=== PATIENT | female | born 1990 | race Caucasian/White ===

== ENCOUNTER 2021-06-28 21:48 | Inpatient (IN) | payer OTHER ==
[2021-06-28 22:36] LABS: BASOPHILS ABSOLUTE AUTO 0.08 K/mm3 (0.00-0.23); BASOPHILS PERCENT AUTO 1 % (0-2); EOSINOPHILS ABSOLUTE AUTO 0.06 K/mm3 (0.00-0.68); EOSINOPHILS PERCENT AUTO 0 % (0-6); Hematocrit 36.4 % (33.0-51.0); Hemoglobin 11.9 g/dL (11.5-16.0); IMMATURE GRAN ABSOLUTE AUTO 0.22 K/mm3 (0.00-0.10); IMMATURE GRAN PERCENT AUTO 1 % (0-1); LYMPHOCYTES ABSOLUTE AUTO 1.49 K/mm3 (0.84-5.20); LYMPHOCYTES PERCENT AUTO 9 % (21-46); MONOCYTES ABSOLUTE AUTO 1.33 K/mm3 (0.16-1.47); MONOCYTES PERCENT AUTO 8 % (4-13); Mean Corpuscular HGB 25.5 pg (26.0-34.0); Mean Corpuscular HGB Conc 32.7 g/dL (31.5-36.5); Mean Corpuscular Volume 78 fL (80-100); Mean Platelet Volume 10.3 fL (9.1-12.4); NEUTROPHILS ABSOLUTE AUTO 12.63 K/mm3 (1.96-9.15); NEUTROPHILS PERCENT AUTO 80 % (41-73); Platelet Count 329 K/mm3 (150-400); RDW Coefficient Variation 14.7 % (11.7-14.2); RDW Standard Deviation 41.1 fL (35.1-46.3); Red Blood Cell Count 4.66 M/mm3 (3.80-5.20); White Blood Cell Count 15.81 K/mm3 (4.00-11.30)
[2021-06-28 23:46] LABS: SARS-Cov-2 (COVID-19) PCR, MMC POSITIVE (NEGATIVE)
[2021-06-30 06:33] LABS: Hematocrit 29.6 % (33.0-51.0); Hemoglobin 9.4 g/dL (11.5-16.0); Mean Corpuscular HGB 25.5 pg (26.0-34.0); Mean Corpuscular HGB Conc 31.8 g/dL (31.5-36.5); Mean Corpuscular Volume 80 fL (80-100); Platelet Count 235 K/mm3 (150-400); RDW Coefficient Variation 15.3 % (11.7-14.2); RDW Standard Deviation 44.3 fL (35.1-46.3); Red Blood Cell Count 3.68 M/mm3 (3.80-5.20); White Blood Cell Count 13.03 K/mm3 (4.00-11.30)
[2021-06-30] MEDS ORDERED: IBUP800 (09:08)
--- NOTE | 2021-06-30 09:10 | NUR ---
Late Entry form 06/29/21. After being contacted by MITCHELL Merrill Wonderly with a request that Father Vikash visit patient, I call Father Vikash. Father Vikash states that he will visit patient 06/30/21 (no time given).
== END 2021-06-30 15:30 | disposition home or self-care (01) | DRG 805 ==
LOC: OBS 21:48 → BC 21:59 → OBS 22:05 → BC 22:23
PROVIDERS: ADMIT Nurse Practitioner Obstetrics & Gynecology
PROC: 10E0XZZ Delivery of Products of Conception, External Approach (ICD-10-PCS; principal; 2021-06-29)
PROC: 10H07YZ Insertion of Other Device into Products of Conception, Via Natural or Artificial Opening (ICD-10-PCS; 2021-06-29)
PROC: 00HU33Z Insertion of Infusion Device into Spinal Canal, Percutaneous Approach (ICD-10-PCS; 2021-06-29)
PROC: 3E0R3BZ Introduction of Anesthetic Agent into Spinal Canal, Percutaneous Approach (ICD-10-PCS; 2021-06-29)
PROC: 0HQ9XZZ Repair Perineum Skin, External Approach (ICD-10-PCS; 2021-06-29)
DX: O77.0 Labor and delivery complicated by meconium in amniotic fluid (principal); U07.1 COVID-19; Z37.0 Single live birth; O98.52 Other viral diseases complicating childbirth; Z3A.41 41 weeks gestation of pregnancy; Z79.899 Other long term (current) drug therapy; O70.0 First degree perineal laceration during delivery
CPT/HCPCS: 36415; 51702; 59070; 85025; 85027; 86850; 86900; 86901; A9270; J0290; J0690; J1885; J2210; J2590; J3010; J7030; J7120; U0004

== ENCOUNTER → 2024-03-06 | Outpatient (CLI) | payer OTHER ==
[~2024-03-06] MED LIST: IBUP800
[2024-03-12 11:14] LABS: HPV HIGH RISK BY TMA Detected; HPV SOURCE Cervical
[2024-03-13 12:14] LABS: HPV GENOTYPE 16 BY TMA Not Detected; HPV GENOTYPE 18/45 BY TMA Not Detected; HPVG SOURCE Cervical
== END | disposition home or self-care (01) ==
LOC: LAB 13:35 → LAB SHORT 13:35
PROVIDERS: Advanced Practice Midwife
DX: Z01.419 Encounter for gynecological examination (general) (routine) without abnormal findings (principal)
CPT/HCPCS: 87624; 87625; G0123

== ENCOUNTER → 2024-12-02 | Outpatient (CLI) | payer OTHER ==
[2024-12-02 14:34] LABS: BASOPHILS ABSOLUTE AUTO 0.06 K/mm3 (0.00-0.23); BASOPHILS PERCENT AUTO 1 % (0-2); EOSINOPHILS ABSOLUTE AUTO 0.04 K/mm3 (0.00-0.68); EOSINOPHILS PERCENT AUTO 0 % (0-6); Hematocrit 33.5 % (33.0-51.0); Hemoglobin 11.6 g/dL (11.5-16.0); IMMATURE GRAN ABSOLUTE AUTO 0.18 K/mm3 (0.00-0.10); IMMATURE GRAN PERCENT AUTO 2 % (0-1); LYMPHOCYTES ABSOLUTE AUTO 1.13 K/mm3 (0.84-5.20); LYMPHOCYTES PERCENT AUTO 11 % (21-46); MONOCYTES ABSOLUTE AUTO 0.63 K/mm3 (0.16-1.47); MONOCYTES PERCENT AUTO 6 % (4-13); Mean Corpuscular HGB 30.2 pg (26.0-34.0); Mean Corpuscular HGB Conc 34.6 g/dL (31.5-36.5); Mean Corpuscular Volume 87 fL (80-100); Mean Platelet Volume 10.1 fL (9.1-12.4); NEUTROPHILS ABSOLUTE AUTO 8.13 K/mm3 (1.96-9.15); NEUTROPHILS PERCENT AUTO 80 % (41-73); Platelet Count 270 K/mm3 (150-400); RDW Coefficient Variation 12.1 % (11.7-14.2); RDW Standard Deviation 38.5 fL (35.1-46.3); Red Blood Cell Count 3.84 M/mm3 (3.80-5.20); White Blood Cell Count 10.17 K/mm3 (4.00-11.30)
== END ==
LOC: LAB 13:15 → LAB SHORT 13:15
PROVIDERS: Advanced Practice Midwife
DX: Z34.93 Encounter for supervision of normal pregnancy, unspecified, third trimester (principal)
CPT/HCPCS: 82950; 85025

== ENCOUNTER → 2024-12-18 | Outpatient (CLI) | payer OTHER | END | disposition home or self-care (01) | LOC: LAB SHORT 13:12 → LAB 13:12 | DX: Z34.93 Encounter for supervision of normal pregnancy, unspecified, third trimester (principal) | CPT/HCPCS: 82951; 82952 ==

== ENCOUNTER → 2025-02-05 | Outpatient (CLI) | payer OTHER ==
[2025-02-05 18:02] LABS: Bacterial Vaginosis PCR Negative (NEGATIVE); Candida glabrata-krusei, PCR NOT DETECTED (NOT DETECT)
[2025-02-05 19:31] LABS: Candida Group, PCR DETECTED (NOT DETECT)
== END ==
LOC: LAB 14:12 → LAB SHORT 14:12
PROVIDERS: Advanced Practice Midwife
DX: N89.8 Other specified noninflammatory disorders of vagina (principal)
CPT/HCPCS: 81515

== ENCOUNTER 2025-02-18 10:05 | Inpatient (IN) | payer OTHER ==
[2025-02-18] VITALS (8 sets, daily range): BP systolic 111–128; BP diastolic 57–84
[2025-02-18] MEDS ORDERED: OXYTOCIN/RINGER'S LACTATE 500 ML IV PRN (10:30)
[2025-02-18] MEDS ORDERED: Misoprostol 200 MCG Tab BC PRN (10:30)
[2025-02-18] MEDS ORDERED: Lactated Ringer's 1,000 ML IV PRN (10:30)
[2025-02-18] MEDS ORDERED: Acetaminophen 500 MG Tab PO PRN (10:30)
[2025-02-18] MEDS ORDERED: Oxytocin 10 Unit / ML Vial IM PRN (10:30)
[2025-02-18] MEDS ORDERED: Misoprostol 200 MCG Tab PR PRN (10:30)
[2025-02-18] MEDS ORDERED: Methylergonovine Maleate 0.2MG / ML 1ML Amp IM PRN ×2 (10:30→14:00)
[2025-02-18] MEDS ORDERED: Carboprost Tromethamine 250 MCG/ML 1ML Amp IM PRN (10:30)
[2025-02-18] MEDS ORDERED: Ondansetron HCl 2 MG / ML 2ML Vial IV PRN (10:30)
[2025-02-18] MEDS ORDERED: Calcium Carbonate 500 MG Tab Chew PO SCH (10:30)
[2025-02-18] MEDS ORDERED: FentaNYL 2mcg/ml-Bup 0.1% Epd 250 ML EPI PRN (10:35)
[2025-02-18] MEDS ORDERED: ePHEDrine Sulfate 50 MG/ML 1ML Injection XX PRN (10:35)
[2025-02-18] MEDS ORDERED: Lactated Ringer's 1,000 ML IV SCH ×3 (10:35→14:00)
[2025-02-18] MEDS ORDERED: Tranexamic Acid 100 ML IV SCH (10:40)
[2025-02-18] MEDS ORDERED: FentaNYL Citrate 50 MCG/ML 2 ML Injection ONE (11:03)
[2025-02-18] MEDS ORDERED: FentaNYL Citrate 50 MCG/ML 2 ML Injection IV PRN (11:05)
[2025-02-18 11:10] LABS: BASOPHILS ABSOLUTE AUTO 0.09 K/mm3 (0.00-0.23); BASOPHILS PERCENT AUTO 1 % (0-2); EOSINOPHILS ABSOLUTE AUTO 0.04 K/mm3 (0.00-0.68); EOSINOPHILS PERCENT AUTO 0 % (0-6); Hematocrit 36.7 % (33.0-51.0); Hemoglobin 12.3 g/dL (11.5-16.0); IMMATURE GRAN ABSOLUTE AUTO 0.25 K/mm3 (0.00-0.10); IMMATURE GRAN PERCENT AUTO 2 % (0-1); LYMPHOCYTES ABSOLUTE AUTO 1.43 K/mm3 (0.84-5.20); LYMPHOCYTES PERCENT AUTO 9 % (21-46); MONOCYTES ABSOLUTE AUTO 0.96 K/mm3 (0.16-1.47); MONOCYTES PERCENT AUTO 6 % (4-13); Mean Corpuscular HGB 26.6 pg (26.0-34.0); Mean Corpuscular HGB Conc 33.5 g/dL (31.5-36.5); Mean Corpuscular Volume 79 fL (80-100); NEUTROPHILS ABSOLUTE AUTO 13.04 K/mm3 (1.96-9.15); NEUTROPHILS PERCENT AUTO 82 % (41-73); Platelet Count 293 K/mm3 (150-400); RDW Coefficient Variation 14.3 % (11.7-14.2); RDW Standard Deviation 40.8 fL (35.1-46.3); Red Blood Cell Count 4.63 M/mm3 (3.80-5.20); White Blood Cell Count 15.81 K/mm3 (4.00-11.30)
[2025-02-18] MEDS ORDERED: OxyCODONE 5 mg/Acetamin 325 mg TABLET PO PRN (14:00)
[2025-02-18] MEDS ORDERED: Lanolin Cream TOP PRN (14:00)
[2025-02-18] MEDS ORDERED: Misoprostol 100 MCG Tab PO PRN (14:00)
[2025-02-18] MEDS ORDERED: Ibuprofen 400 MG Tab PO PRN (14:00)
[2025-02-18] MEDS ORDERED: Ketorolac Tromethamine 30mg Vial IV PRN (14:00)
[2025-02-18] MEDS ORDERED: Acetaminophen 325 MG TABLET PO PRN (14:05)
[2025-02-18] MEDS ORDERED: OXYTOCIN/RINGER'S LACTATE 500 ML IV SCH (14:05)
[2025-02-18] MEDS ORDERED: Benzocaine Topical Anesthetic Spray 60GM TOP PRN (14:05)
[2025-02-18] MEDS ORDERED: Diphth,Pertuss(Acell),Tet Vac 0.5 ML VIAL IM SCH (14:05)
[2025-02-18] MEDS ORDERED: Docusate Sodium 100 MG Cap PO PRN (14:05)
[2025-02-18] MEDS ORDERED: Witch Hazel/Glycerin PADS TOP PRN (14:05)
[2025-02-18] MEDS ORDERED: Methylergonovine Maleate 0.2MG / ML 1ML Amp IV ONE (16:26)
[2025-02-19 03:14] VITALS: BP 126/72
[2025-02-19 06:01] LABS: Hematocrit 31.2 % (33.0-51.0); Hemoglobin 10.2 g/dL (11.5-16.0); Mean Corpuscular HGB 26.1 pg (26.0-34.0); Mean Corpuscular HGB Conc 32.7 g/dL (31.5-36.5); Mean Corpuscular Volume 80 fL (80-100); Mean Platelet Volume 9.7 fL (9.1-12.4); Platelet Count 245 K/mm3 (150-400); RDW Coefficient Variation 14.4 % (11.7-14.2); RDW Standard Deviation 40.8 fL (35.1-46.3); Red Blood Cell Count 3.91 M/mm3 (3.80-5.20); White Blood Cell Count 14.78 K/mm3 (4.00-11.30)
[2025-02-19 08:52] VITALS: BP 100/56
[2025-02-19] MEDS ORDERED: Prenatal Vit/FE Fumarate/FA 1 Tab PO SCH (09:00)
[2025-02-19 11:43] LABS: Influenza A, PCR NEGATIVE (NEGATIVE); Influenza B, PCR NEGATIVE (NEGATIVE); Resp Syncytial Virus, PCR NEGATIVE (NEGATIVE)
[2025-02-19 11:59] LABS: SARS-Cov-2 (COVID-19) PCR, MMC POSITIVE (NEGATIVE)
[2025-02-19 13:02] VITALS: BP 112/65
[2025-02-22 17:22] LABS: HEPATITIS C AB CIA INTERP Negative (Negative); HEPATITIS C ANTIBODY CIA INDEX 0.06 IV
== END 2025-02-19 15:15 | disposition home or self-care (01) | DRG 806 ==
LOC: OBS 10:05 → BC 10:09 → OBS 10:22 → BC 10:22
PROVIDERS: ADMIT Advanced Practice Midwife
PROC: 10E0XZZ Delivery of Products of Conception, External Approach (ICD-10-PCS; principal; 2025-02-18)
PROC: 10907ZC Drainage of Amniotic Fluid, Therapeutic from Products of Conception, Via Natural or Artificial Opening (ICD-10-PCS; 2025-02-18)
PROC: 0HQ9XZZ Repair Perineum Skin, External Approach (ICD-10-PCS; 2025-02-18)
DX: O48.0 Post-term pregnancy (principal); O98.32 Other infections with a predominantly sexual mode of transmission complicating childbirth; Z37.0 Single live birth; Z3A.40 40 weeks gestation of pregnancy; A60.09 Herpesviral infection of other urogenital tract; O70.0 First degree perineal laceration during delivery; O77.0 Labor and delivery complicated by meconium in amniotic fluid
CPT/HCPCS: 0241U; 36415; 59025; 85025; 85027; 86803; 86850; 86900; 86901; 99214; A9270; J1885; J2210; J2590; J3010

== ENCOUNTER 2025-04-18 17:20 | Inpatient (IN) | payer OTHER ==
[~2025-04-18] VITALS: Ht 167.6 cm; Wt 73.6 kg
[2025-04-18] MEDS ORDERED: NS 1,000 ML IV ONE (18:39)
[2025-04-18 18:56] LABS: BASOPHILS ABSOLUTE AUTO 0.06 K/mm3 (0.00-0.23); BASOPHILS PERCENT AUTO 0 % (0-2); EOSINOPHILS ABSOLUTE AUTO 0.05 K/mm3 (0.00-0.68); EOSINOPHILS PERCENT AUTO 0 % (0-6); Hematocrit 37.1 % (33.0-51.0); Hemoglobin 12.8 g/dL (11.5-16.0); IMMATURE GRAN ABSOLUTE AUTO 0.19 K/mm3 (0.00-0.10); IMMATURE GRAN PERCENT AUTO 1 % (0-1); LYMPHOCYTES ABSOLUTE AUTO 0.54 K/mm3 (0.84-5.20); LYMPHOCYTES PERCENT AUTO 3 % (21-46); MONOCYTES ABSOLUTE AUTO 1.78 K/mm3 (0.16-1.47); MONOCYTES PERCENT AUTO 8 % (4-13); Mean Corpuscular HGB Conc 34.5 g/dL (31.5-36.5); Mean Corpuscular Volume 78 fL (80-100); Mean Platelet Volume 9.7 fL (9.1-12.4); NEUTROPHILS ABSOLUTE AUTO 18.54 K/mm3 (1.96-9.15); NEUTROPHILS PERCENT AUTO 88 % (41-73); Platelet Count 262 K/mm3 (150-400); RDW Coefficient Variation 17.1 % (11.7-14.2); Red Blood Cell Count 4.74 M/mm3 (3.80-5.20); White Blood Cell Count 21.16 K/mm3 (4.00-11.30)
[2025-04-18 19:09] LABS: Albumin, Blood 3.7 g/dL (3.4-5.0); Albumin/Globulin Ratio 1.2 (0.8-1.8); Bilirubin, Total 1.1 mg/dL (0.1-1.0); Bun/Creatinine Ratio 13.2 (12.0-20.0); Creatinine, Blood 0.99 mg/dL (0.40-1.00); Globulin, Blood 3.1 g/dL (2.2-4.0); Potassium, Blood 3.3 mmol/L (3.5-5.5); Total Protein, Blood 6.8 g/dL (6.4-8.2)
[2025-04-18] MEDS ORDERED: CeFAZolin Sodium 2,000 MG in NS 100 ML IV ONE (19:15)
[2025-04-18] MEDS ORDERED: Cefepime HCl 2,000 MG in NS 100 ML IV ONE (19:50)
[2025-04-18 19:52] LABS: Source, Urine Clean Catch
[2025-04-18 19:54] LABS: Appearance, Urine Clear (Clear); Bilirubin, Urine Neg (Neg); Blood, Urine Neg (Neg); Glucose Qualitative, Urine Neg (Neg); Ketones, Urine Neg (Neg); Leukocyte Esterase, Urine Neg (Neg); Nitrite, Urine Neg (Neg); Protein, Urine 1+ (Neg); Specific Gravity, Urine 1.005 (1.003-1.022); Urobilinogen, Urine NORM (Normal)
[2025-04-18 19:59] LABS: Color, Urine Pale Yellow (P-Yellow)
[2025-04-18] MEDS ORDERED: Vancomycin HCL 1,500 MG in NS 250 ML IV ONE (20:00)
[2025-04-18] MEDS ORDERED: Ketorolac Tromethamine 15mg Vial IV ONE (20:05)
[2025-04-18] MEDS ORDERED: Ondansetron HCl 2 MG / ML 2ML Vial IV ONE (20:20)
[2025-04-18] MEDS ORDERED: Lactated Ringer's 1,000 ML IV ONE (21:30)
[2025-04-18] MEDS ORDERED: PRENATAL TABLE1 EAC2 PO (21:42)
[2025-04-18] MEDS ORDERED: Ondansetron HCl 2 MG / ML 2ML Vial IV PRN (21:55)
[2025-04-18] MEDS ORDERED: Potassium Chloride 20 MEQ TabCR PO ONE (23:00)
[2025-04-18] MEDS ORDERED: Acetaminophen 500 MG Tab PO ONE (23:35)
[2025-04-19] VITALS (13 sets, daily range): BP systolic 90–128; BP diastolic 63–91
[2025-04-19] MEDS ORDERED: Lactated Ringer's 500 ML IV SCH ×4 (00:45→02:00)
[2025-04-19] MEDS ORDERED: Lactated Ringer's 1,000 ML IV ONE (00:49)
[2025-04-19] MEDS ORDERED: Midodrine 5 MG Tab PO SCH (03:00)
[2025-04-19 06:09] LABS: BASOPHILS PERCENT AUTO 0 % (0-2); EOSINOPHILS PERCENT AUTO 0 % (0-6); Hematocrit 32.2 % (33.0-51.0); Hemoglobin 10.9 g/dL (11.5-16.0); IMMATURE GRAN ABSOLUTE AUTO 0.25 K/mm3 (0.00-0.10); IMMATURE GRAN PERCENT AUTO 1 % (0-1); LYMPHOCYTES PERCENT AUTO 6 % (21-46); MONOCYTES ABSOLUTE AUTO 1.48 K/mm3 (0.16-1.47); MONOCYTES PERCENT AUTO 6 % (4-13); Mean Corpuscular HGB Conc 33.9 g/dL (31.5-36.5); Mean Corpuscular Volume 80 fL (80-100); Mean Platelet Volume 9.4 fL (9.1-12.4); NEUTROPHILS ABSOLUTE AUTO 23.34 K/mm3 (1.96-9.15); NEUTROPHILS PERCENT AUTO 87 % (41-73); Platelet Count 218 K/mm3 (150-400); RDW Coefficient Variation 17.4 % (11.7-14.2); Red Blood Cell Count 4.04 M/mm3 (3.80-5.20); White Blood Cell Count 26.97 K/mm3 (4.00-11.30)
[2025-04-19 06:43] LABS: Albumin, Blood 3.1 g/dL (3.4-5.0); Albumin/Globulin Ratio 1.1 (0.8-1.8); Bilirubin, Total 0.9 mg/dL (0.1-1.0); Calcium, Blood 8.6 mg/dL (8.5-10.1); Creatinine, Blood 0.86 mg/dL (0.40-1.00); Globulin, Blood 2.8 g/dL (2.2-4.0); Magnesium, Blood 1.7 mg/dL (1.6-2.4); Percent Saturation 5.5 % (15.0-50.0); Potassium, Blood 4.2 mmol/L (3.5-5.5); Total Protein, Blood 5.9 g/dL (6.4-8.2)
[2025-04-19] MEDS ORDERED: Vancomycin HCL 1,250 MG in NS 250 ML IV SCH (08:00)
[2025-04-19] MEDS ORDERED: Cefepime HCl 2,000 MG in NS 100 ML IV SCH (08:00)
[2025-04-19] MEDS ORDERED: Enoxaparin 40 MG/0.4 ML SYR SC SCH (09:00)
[2025-04-19] MEDS ORDERED: Lactobacil 2-S.Thermo-Bifido 1 1 Cap PO SCH (09:00)
--- NOTE | 2025-04-19 10:37 | NUR ---
upon assumption of care. pt wanting to leave ama after abx infusion. with abx administration, therapeutic communication, and obtaining bags for the patient to pumpp in to (last pump time ~2100), pt agreeable to stay. pleasant and cooperative. awaiting room placement.
--- NOTE | 2025-04-19 10:49 | NUR ---
REPORT GIVEN TO BRADLY Chávez RN PCU. PLAN TO GO TO PCU 09
[2025-04-19] MEDS ORDERED: Magnesium500 M1 PO (11:11)
[2025-04-19] MEDS ORDERED: Acetaminophen 325 MG TABLET PO PRN (12:05)
[2025-04-19] MEDS ORDERED: Ferrous Sulfate 325 MG Tab PO SCH (18:00)
--- NOTE | 2025-04-19 18:54 | NUR ---
SHIFT SUMMARY: PT A&OX4, FOLLOWS COMMANDS AND MAKES NEEDS KNOWN TO STAFF. PT WAS ABLE TO SHOWER INDEPENDENTLY THIS EVENING AND HAS DENIED ANY COMPLAINTS OF CP OR SOB. BLOOD PRESSURE HAS BEED SOFT ALL DAY AND RECIEVED MIDODRINE. PT HAS HER AND BABY AT BEDSIDE AND HAS BEEN ABLE TO EXPRESS MILK FROM HER LEFT BREAST. NO SIGNIFICANT EVENTS HAPPENED DURING THIS SHIFT. WILL CONTINUE TO CARE FOR PT TILL END OF SHIFT.
--- NOTE | 2025-04-19 20:20 | NUR ---
ASSUMED CARE OF THIS PATIENT AT 1900. PT IS VERY PLESANT AND KIND COOPERATIVE WITH CARE. SHE IS A+OX4 ABLE TO MAKE NEEDS KNOWN, IDEPENT IN THE ROOM. SHE HAS LOTS OF FAMILY AT BEDSIDE VISITING WITH HER. BP SOFT WITH SYSTOLIC BP IN THE 90S, DENIES CHEST PAIN OR PRESSURE. IV ABX INFUSING PER EMAR. BED IN LOWEST POSTION, CALL LIGHT IN REACH.
[2025-04-20 03:30] VITALS: BP 117/78
[2025-04-20 03:38] LABS: BASOPHILS ABSOLUTE AUTO 0.08 K/mm3 (0.00-0.23); BASOPHILS PERCENT AUTO 0 % (0-2); EOSINOPHILS ABSOLUTE AUTO 0.38 K/mm3 (0.00-0.68); EOSINOPHILS PERCENT AUTO 2 % (0-6); Hematocrit 33.2 % (33.0-51.0); IMMATURE GRAN ABSOLUTE AUTO 0.08 K/mm3 (0.00-0.10); IMMATURE GRAN PERCENT AUTO 0 % (0-1); LYMPHOCYTES ABSOLUTE AUTO 1.47 K/mm3 (0.84-5.20); LYMPHOCYTES PERCENT AUTO 8 % (21-46); MONOCYTES ABSOLUTE AUTO 1.02 K/mm3 (0.16-1.47); MONOCYTES PERCENT AUTO 5 % (4-13); Mean Corpuscular HGB 27.2 pg (26.0-34.0); Mean Corpuscular HGB Conc 33.1 g/dL (31.5-36.5); Mean Corpuscular Volume 82 fL (80-100); Mean Platelet Volume 9.9 fL (9.1-12.4); NEUTROPHILS ABSOLUTE AUTO 16.11 K/mm3 (1.96-9.15); NEUTROPHILS PERCENT AUTO 84 % (41-73); Platelet Count 203 K/mm3 (150-400); RDW Coefficient Variation 17.9 % (11.7-14.2); RDW Standard Deviation 53.5 fL (35.1-46.3); Red Blood Cell Count 4.04 M/mm3 (3.80-5.20); White Blood Cell Count 19.14 K/mm3 (4.00-11.30)
[2025-04-20 03:56] LABS: Albumin, Blood 2.9 g/dL (3.4-5.0); Bilirubin, Total 0.6 mg/dL (0.1-1.0); Bun/Creatinine Ratio 10.9 (12.0-20.0); Calcium, Blood 8.4 mg/dL (8.5-10.1); Creatinine, Blood 0.91 mg/dL (0.40-1.00); Potassium, Blood 3.8 mmol/L (3.5-5.5); Total Protein, Blood 5.9 g/dL (6.4-8.2)
--- NOTE | 2025-04-20 05:14 | NUR ---
SHIFT SUMMARY PT REMAINS A+O X4 ABLE TO MAKE NEEDS KNOWN. PT HAS VERY HIGH ANXIETY AND IS UPSET ABOUT BEING AWAY FROM HER THIS RN WAS ABLE TO PROVIDE THERAPEUTIC COMMUNICATION PT MORE COMFORTABLE AFTER THIS. REMAINED AT BEDSIDE ALL NIGHT. SHE HAS BEEN ABLE TO PUMP AND EXPRESS BREAST MILK. REDNESS IN L BREAST SEEMS TO BE IMPROVING DOES PAIN PER PATIENT REPORT. NO ACUTE EVENTS OVER NIGHT. PATIENT IS INDEPENT IN THR ROOM AND CALLS FOR ASSISTANCE WHEN NEEDED. WILL CONTINUE TO CARE FOR PATIENT UNTIL END OF SHIFT AND REPORT TO ONCOMING RN.
[2025-04-20 07:53] VITALS: BP 106/65
[2025-04-20 08:28] LABS: Vancomycin, Trough 14.5 ug/mL (5.0-10.0)
[2025-04-20] MEDS ORDERED: Vancomycin HCL 1,250 MG in NS 250 ML IV SCH (09:00)
[2025-04-20 11:27] VITALS: BP 112/71
--- NOTE | 2025-04-20 12:35 | NUR ---
Transfer Note Pt made medical w/ no telemetry status. Pt A&O x4. VSS. Spo2 > 92% on RA. Monitor showing NSR prior to telemetry removal. Pt reporting L breast continues to be tender. L breast redness noted to have receeded from outline at top of marking, but spread outward slightly beyond line around bottom right of previous outline. Pt reports redness more intense when IV abx is given, but then improves. Reassessment w/ surgical floor nurse at time of transfer shows L breast redness to be less red & more pink in color. Pt pumping every 2-3 hours while awake. Questioned pt & pt if change noticed w/ pumping. Pt & pt unsure. Pt stating redness has overall improved. Pt ambulates independently, able to ambulate from PCU to surgical rm 226 at time of transfer. Pt to rm 226 @ approx 1230. Report given to [facility] surgical floor RN prior to transfer. Belongings sent w/ pt.
[2025-04-20 15:24] VITALS: BP 101/67
[2025-04-20] MEDS ORDERED: Cephalexin Monohydrate 500 MG Cap PO SCH (18:00)
--- NOTE | 2025-04-20 18:19 | NUR ---
PT TRANSFERRED FROM PCU TODAY. PT ADMITTED YESTERDAY FROM L BREAST PAIN, TMAX OF 103 AND ELEVATED LACTIC ACID WHICH HAS SINCE REDUCED TO WNL. PT AFEBRILE TODAY AND BREAST REDNESS IS SHRINKING. PT BP REMAINS ON THE LOWER END OF NORMAL, BUT MAY BE PT BASELINE AND NOT R/T SEPSIS. LAST DOSE OF MIDODRINE GIVEN LAST NIGHT AT 1999. IV ABX SWITCHED TO PO TODAY TOLERATING WELL. FAMILY AT BEDSIDE.
[2025-04-20 19:14] VITALS: BP 100/60
--- NOTE | 2025-04-21 03:25 | NUR ---
SHIFT SUMMARY NO ACUTE CHANGES T/O SHIFT. MARKED AREA TO LEFT BREAST APPEARS SMALLER AND LESS RED IN COLOR. PT REPORTS NB WITHOUT DIFFICULTY AND CONTINUES TO PUMP. ALYCIA PO ABX AND PO INTAKE. SPOUSE AND NB IN ROOM. PT COOPERATIVE AND PLEASANT WITH CARE. IS EAGER FOR DISCHARGE WHEN APPROPRIATE. PT CURRENTLY RESTING IN BED WITH EYES CLOSED, RESP EVEN AND UNLABORED WITH CALL LIGHT IN REACH. WILL GIVE REPORT TO ONCOMING RN.
[2025-04-21 05:51] VITALS: BP 114/71
[2025-04-21 06:58] LABS: BASOPHILS ABSOLUTE AUTO 0.06 K/mm3 (0.00-0.23); BASOPHILS PERCENT AUTO 1 % (0-2); EOSINOPHILS ABSOLUTE AUTO 0.58 K/mm3 (0.00-0.68); EOSINOPHILS PERCENT AUTO 8 % (0-6); Hematocrit 32.9 % (33.0-51.0); Hemoglobin 11.2 g/dL (11.5-16.0); IMMATURE GRAN ABSOLUTE AUTO 0.02 K/mm3 (0.00-0.10); IMMATURE GRAN PERCENT AUTO 0 % (0-1); LYMPHOCYTES ABSOLUTE AUTO 1.57 K/mm3 (0.84-5.20); LYMPHOCYTES PERCENT AUTO 22 % (21-46); MONOCYTES ABSOLUTE AUTO 0.55 K/mm3 (0.16-1.47); MONOCYTES PERCENT AUTO 8 % (4-13); Mean Corpuscular HGB 27.3 pg (26.0-34.0); Mean Corpuscular Volume 80 fL (80-100); Mean Platelet Volume 10.4 fL (9.1-12.4); NEUTROPHILS PERCENT AUTO 61 % (41-73); Platelet Count 209 K/mm3 (150-400); RDW Coefficient Variation 17.6 % (11.7-14.2); RDW Standard Deviation 51.6 fL (35.1-46.3); White Blood Cell Count 7.08 K/mm3 (4.00-11.30)
[2025-04-21 07:33] VITALS: BP 84/50
[2025-04-21 07:35] VITALS: BP 107/73
[2025-04-21 07:39] LABS: Albumin, Blood 3.2 g/dL (3.4-5.0); Bilirubin, Total 0.6 mg/dL (0.1-1.0); Bun/Creatinine Ratio 11.6 (12.0-20.0); Calcium, Blood 8.7 mg/dL (8.5-10.1); Creatinine, Blood 0.69 mg/dL (0.40-1.00); Globulin, Blood 3.3 g/dL (2.2-4.0); Potassium, Blood 3.7 mmol/L (3.5-5.5); Total Protein, Blood 6.5 g/dL (6.4-8.2)
[2025-04-21 08:05] VITALS: BP 108/78
[2025-04-21] MEDS ORDERED: CEPH500 PO (10:04)
[2025-04-21] MEDS ORDERED: FERSU300 PO (10:05)
[2025-04-21] MEDS ORDERED: VISBIOME 112.51 EACH PO (10:06)
--- NOTE | 2025-04-21 12:38 | NUR ---
DISCHARGE: VSS, PT VOIDING, WALKING, PAIN MANAGED AND REDNESS IMPROVING. PACKET PRINTED AND PT EDUCATED. PT SCRIPTS SENT TO [facility] ON [address]. PT LEFT UNIT ON FOOT WITH FAMILY AT ABOUT 1130
== END 2025-04-21 11:10 | disposition home or self-care (01) | DRG 872 ==
LOC: ER 17:20 → PCU 20:35 → SURS 20:35 → ERHOLD 20:35 → ICUE 04-19 08:20 → PCU 04-19 10:49 → SURS 04-20 12:25
PROVIDERS: Student in an Organized Health Care Education/Training Program; ADMIT Student in an Organized Health Care Education/Training Program
DX: A41.9 Sepsis, unspecified organism (principal); R65.20 Severe sepsis without septic shock; N61.0 Mastitis without abscess; E87.6 Hypokalemia; D50.9 Iron deficiency anemia, unspecified; Z90.49 Acquired absence of other specified parts of digestive tract; Z39.1 Encounter for care and examination of lactating mother
CPT/HCPCS: 36415; 76642; 80053; 80202; 82728; 83540; 83550; 83605; 83735; 85025; 87040; 96361; 96365; 96366; 96375; 99284-25; A9270; J0692; J1885; J2405; J3370; J7030; J7050; J7120